=== PATIENT | female | born 1995 | race Asian ===

== ENCOUNTER → 2023-11-06 | Outpatient (CLI) | payer OTHER | END | disposition home or self-care (01) | LOC: LAB 07:50 | PROVIDERS: ATTEND Obstetrics & Gynecology | DX: N92.6 Irregular menstruation, unspecified (principal) | CPT/HCPCS: 36415; 84146; 84443 ==

== ENCOUNTER 2024-12-03 16:12 | Emergency (ER) | payer OTHER ==
[~2024-12-03] VITALS: Ht 157.5 cm; Wt 73.9 kg
[~2024-12-03 16:12] MED LIST: AMOX500T2 PO
[2024-12-03 16:35] LABS: RAPID GROUP A STREP negative (NEGATIVE)
[2024-12-03 16:45] LABS: COVID19 (SARS ANTIGEN RAPID) PRESUMPTIVE NEGATIVE (NEGATIVE); INFLUENZA TYPE A Negative For Type A (NEGATIVE); INFLUENZA TYPE B Negative For Type B (NEGATIVE)
[2024-12-03 17:23] VITALS: BP 118/73; PULSE 100; RESP 18; TEMP 98.2; O2SAT 100
[2024-12-03] MEDS ORDERED: AMOX1TAB16 PO (17:30)
--- NOTE | 2024-12-03 17:30 | ERN ---
ED Note History of Present Illness Stated Complaint: SORE THROAT Chief Complaint: Sore Throat Time Seen by MD: 16:13 Time Seen by Midlevel: 16:13 Dictation: The patient is a 29-year-old female with no past medical history who presents to the emergency department with complaints of bilateral ear pain and sore throat onset a week ago. Patient reports fevers. Denies any cough or runny nose. Allergies: Coded Allergies: No Known Allergies (Unverified Allergy, Unknown, 11/04/24) Home Meds Active Scripts Amoxicillin/Potassium Clav (Amox Tr-K Clv 875-125 mg Tab) 875 Mg-125 Mg Tablet, 1 TAB PO BID for 7 Days, #14 TAB 0 Refills Prov:TROY DIAS [employer] 12/03/24 Amoxicillin (Amoxicillin) 500 Mg Tablet, 1 TAB PO TID for 10 Days, #30 TAB 0 Refills Prov:ABRIL COREAS [employer] 11/04/24 Past Medical History Past Medical History: Asthma Surgical History: None RN Note Reviewed/Agreed w/PFSH: Yes Review of System Dictation Constitutional: Negative for fever,chills, and weight loss Eyes: Negative for injury, pain,redness, and discharge ENT: Negative for injury,pain or swelling positive for sore throat, bilateral ear pain Cardiovascular: Negative for chest pain, palpitations, and edema Respiratory: Negative for shortness of breath, cough, and wheezing, Abdomen/GI: Negative for abdominal pain, nausea, vomiting, diarrhea, and constipation Back: Negative for injury and pain : Negative for injury, bleeding and discharge MS/Extremity: Negative for injury and deformity Skin: Negative for rash, and discoloration Neuro: Negative for headache, weakness, numbness, tingling, and seizure Psych: Negative for suicide ideation, homicidal ideation, and hallucinations Initial Vital Sign VS Vital Signs Date Time Temp Pulse Resp B/P (MAP) Pulse Ox O2 Delivery O2 Flow Rate FiO2 12/03/24 16:13 98.2 117 18 123/72 100 Room Air 12/03/24 17:23 0 21 Physical Exam Dictation Vital Signs reviewed General Appearance: Alert, oriented x 3, no acute distress, well developed, nourished. Head and Face: non-traumatic. Eyes: PERRL, pink conjunctivas, eyelid no trauma, anterior chamber with arcus senilis. Ears: Pinnas intact and no signs of trauma or erythema ear canals clear and no discharge tympanic membrane erythema Nose: No discharge, no bleeding. Oropharynx: Mouth normal, tongue pink. pharynx clear,no erythema, tonsils no exudates, no abscesses noted, mucous membrane moist Neck: Supple, non-tender, no thyromegaly, no masses, no JVD, no bruits Breast:Deferred Chest:No tenderness, no crepitus, no paradoxical movement, no retractions Lungs:Clear, well-ventilated, symmetric, no rales, no wheezing, no rhonchi, no stridor, good breath sounds bilaterally Heart: Regular rate, regular rhythm, no murmur, no gallops Vascular: no peripheral edema, Abdomen: Soft, positive bowel sounds, nondistended, no guarding, nontender, no rebound, no masses no hepatomegaly, no splenomegaly, no Schneider's sign, no hernias. Rectal: Deferred Genital: Deferred Neurological: Normal speech, motor function intact, sensory function intact Musculoskeletal: Neck nontender, full range of motion, back nontender, full range of motion, Extremities: nontender, full range of motion Skin: Color pink, dry, no turgor, no rash, no lacerations, no abrasions, no contusions. Lymphatic: Deferred Results (Laboratory/Radiology) Laboratory/Radiology Laboratory Tests Test 12/03/24 16:17 Influenza Type A Antigen Negative For Type A Influenza Type B Antigen Negative For Type B SARS-CoV-2 Antigen (Rapid) PRESUMPTIVE NEGATIVE Group A Streptococcus Rapid negative (NEGATIVE) Labs Reviewed?: Yes ED Course ED Course Orders Procedure Category Date Status Time Covid19 (Sars Antigen LAB 12/03/24 Complete Rapid) 16:17 Rapid (Group A Strep) LAB 12/03/24 Complete 16:17 Influenza Type A & B, LAB 12/03/24 Complete Rapid 16:17 Vital Signs Date Time Temp Pulse Resp B/P (MAP) Pulse Ox O2 Delivery O2 Flow Rate FiO2 12/03/24 17:23 98.2 100 18 118/73 100 Room Air* 0 21 12/03/24 16:13 98.2 117 18 123/72 100 Room Air Medical Decision Making MDM The patient is a 29-year-old female with no past medical history who presents to the emergency department with complaints of bilateral ear pain and sore throat onset a week ago. Patient reports fevers. Denies any cough or runny nose. Patient with bilateral tympanic membrane erythema, no signs of abscess to throat. On physical exam patient is in no acute distress, nonlabored respirations. Patient will be discharge on antibiotics and instructed to follow up with PCP. Differential diagnosis: Pharyngitis, otitis media, upper respiratory infection, strep throat Need for hospitalization: Patient does not meet criteria for hospitalization. There are no social concerns with this patient. DX & DISP Disposition: Discharge Departure Impression: Primary Impression: Otitis media Condition: Stable Scripts Amoxicillin/Potassium Clav (Amox Tr-K Clv 875-125 mg Tab) 875 Mg-125 Mg Tablet 1 TAB PO BID for 7 Days, #14 TAB 0 Refills Prov: TROY DIAS 12/03/24 Additional Instructions: Please follow up with your primary doctor in 1-2 days. Take your medications as prescribed. If anything worsens please return to ER. FOLLOW-UP WITH PRIMARY CARE PROVIDER IN 1 TO 2 DAYS. TAKE MEDICATIONS DIRECTED HERE IN THE EMERGENCY ROOM. OKAY TO CONTINUE HOME MEDICATIONS UNLESS O THERWISE DISCUSSED DURING YOUR VISIT IN THE EMERGENCY ROOM TODAY. RETURN TO YOUR NEAREST EMERGENCY ROOM IF SYMPTOMS WORSEN OR IF THERE IS NO IMPROVEMENT. CALL 911 IF YOU NEED IMMEDIATE ASSISTANCE. TAKE TYLENOL [id number] NEEDED AND IF NO CONTRAINDICATIONS ARE PRESENT. INCREASE ORAL HYDRATION. A WOUND CULTURE OR URINE CULTURE WAS ORDERED HERE IN THE EMERGENCY ROOM DEPARTMENT PLEASE FOLLOW-UP WITH PRIMARY CARE PROVIDER AND ADVISE THEM TO GET REPEAT PORTS FROM OUR FACILITY. IF YOU HAD ANY MELVA WRAP/SPLINTS THAT WERE APPLIED HERE, PLEASE DO NOT REMOVE THEM UNTIL YOU SEE YOUR PRIMARY CARE OR SPECIALTY. Referrals: LIDA PRECIADO MD (PCP) Time of Disposition: 17:28 I have reviewed the case, and I agree with, Diagnosis and Plan TROY DIAS Dec 03, 2024 17:30 JAYASHREE SANTOS DO Dec 03, 2024 17:34
== END 2024-12-03 17:32 | disposition home or self-care (01) ==
LOC: EDH 16:12
DX: H66.93 Otitis media, unspecified, bilateral (principal); J45.909 Unspecified asthma, uncomplicated; Z20.822 Contact with and (suspected) exposure to COVID-19; Z79.899 Other long term (current) drug therapy
CPT/HCPCS: 87426; 87804; 87880; 99283